=== PATIENT | male | born 2000 | race Hispanic/Latino ===

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

== ENCOUNTER 2022-02-14 09:16 | Observation (INO) | payer OTHER ==
[2022-02-14] MEDS ORDERED: Ketorolac Tromethamine 30 MG/ML VIAL ONE (09:54)
[2022-02-14 10:03] LABS: #Basophils 0.1 thou/uL (0.0-0.2); #Eosinphils 0.2 thou/uL (0.0-0.7); #Lymphocytes 2.6 thou/uL (1.20-3.40); #Monocytes 0.7 thou/uL (0.11-0.59); #Neutrophils 6.3 thou/uL (1.40-6.50); %Basophils 0.5 % (0.0-1.0); %Eosinophils 1.9 % (0.0-10.0); %Lymphocytes 26.3 % (28.0-48.0); %Monocytes 7.1 % (0.0-4.0); %Neutrophils 64.1 % (31.0-61.0); Hemoglobin 15.6 g/dL (14.0-18.0); Mean Corpuscular Hemoglobin 29.3 pg (25.0-35.0); Mean Corpuscular Volume 88.8 fL (78.0-98.0); Mean Platelet Volume 6.7 fL (7.4-10.4); Platelet Count 375 thou/uL (130-400); RBC Distribution Width 12.5 % (11.5-14.5); Red Blood Cell (RBC) Count 5.31 mill/uL (4.00-5.20); White Blood Cell (WBC) Count 9.8 thou/uL (4.8-10.8)
[2022-02-14 10:19] LABS: ALT (SGPT) 24 U/L (8-55); AST (SGOT) 19 U/L (5-34); Albumin 4.3 g/dL (3.5-5.0); Alkaline Phosphatase 112 U/L (50-130); Anion Gap 12 mmol/L (10-20); BUN (Urea Nitrogen) 10 mg/dL (8.9-20.6); Bilirubin, Total 0.5 mg/dL (0.2-1.2); Calc. Creatinine Clearance 0 mL/min (70-130); Calcium 9.5 mg/dL (7.8-10.44); Carbon Dioxide 25 mmol/L (22-29); Chloride 104 mmol/L (98-107); Globulin 3.4 g/dL (2.4-3.5); Glucose 108 mg/dL (70-105); Potassium 4.2 mmol/L (3.5-5.1); Protein, Total 7.7 g/dL (6.0-8.3); Sodium 137 mmol/L (136-145)
[2022-02-14] MEDS ORDERED: Clindamycin/D5W 900 mg/50 ml Premix Bag ONE (12:49)
[2022-02-14] MEDS ORDERED: Iopamidol-370 76% 500 ML 1 ML ONE (13:34)
[2022-02-14] MEDS: Ibuprofen 800 MG TAB PO PRN (15:47)
[2022-02-14 16:35] VITALS: BMI 37.1
[2022-02-14] MEDS: Acetaminophen 325 MG TAB PO PRN (18:08)
[2022-02-14] MEDS: Clindamycin/D5W 600 MG in Premix Bag 1 BAG IVPB SCH (20:06)
[2022-02-14 23:26] LABS: SARS-CoV-2 NAA Rapid Test Not Detected (NotDetected)
[2022-02-15] MEDS: Clindamycin/D5W 600 MG in Premix Bag 1 BAG IVPB SCH ×2 (04:49→12:04)
[2022-02-15] MEDS: Ibuprofen 800 MG TAB PO PRN ×3 (04:54→20:45)
[2022-02-15 07:19] LABS: #Eosinphils 0.2 thou/uL (0.0-0.7); #Lymphocytes 2.6 thou/uL (1.20-3.40); #Monocytes 0.7 thou/uL (0.11-0.59); #Neutrophils 5.7 thou/uL (1.40-6.50); %Basophils 0.5 % (0.0-1.0); %Eosinophils 2.7 % (0.0-10.0); %Monocytes 7.7 % (0.0-4.0); %Neutrophils 61.2 % (31.0-61.0); Hemoglobin 14.2 g/dL (14.0-18.0); Mean Corpuscular Hemoglobin 29.8 pg (25.0-35.0); Mean Corpuscular Volume 90.3 fL (78.0-98.0); Platelet Count 326 thou/uL (130-400); RBC Distribution Width 12.5 % (11.5-14.5); Red Blood Cell (RBC) Count 4.78 mill/uL (4.00-5.20); White Blood Cell (WBC) Count 9.2 thou/uL (4.8-10.8)
[2022-02-15 07:36] LABS: ALT (SGPT) 19 U/L (8-55); AST (SGOT) 15 U/L (5-34); Albumin 3.9 g/dL (3.5-5.0); Alkaline Phosphatase 111 U/L (50-130); Anion Gap 13 mmol/L (10-20); BUN (Urea Nitrogen) 11 mg/dL (8.9-20.6); Bilirubin, Total 0.3 mg/dL (0.2-1.2); Calc. Creatinine Clearance 246 mL/min (70-130); Calcium 9.3 mg/dL (7.8-10.44); Carbon Dioxide 23 mmol/L (22-29); Chloride 107 mmol/L (98-107); Globulin 3.1 g/dL (2.4-3.5); Glucose 109 mg/dL (70-105); Sodium 139 mmol/L (136-145)
[2022-02-15] MEDS: Acetaminophen 325 MG TAB PO PRN (09:31)
[2022-02-15] MEDS ORDERED: Saccharomyces boulardii 250 MG CAP PO SCH (13:15)
[2022-02-15] MEDS: Clindamycin 150 MG CAP PO SCH (20:13)
[2022-02-16] MEDS: Ibuprofen 800 MG TAB PO PRN (06:00)
[2022-02-16] MEDS: Clindamycin 150 MG CAP PO SCH (06:00)
[2022-02-16 08:22] VITALS: BP 112/78; TEMP 98.6
[2022-02-16] MEDS ORDERED: Saccharomyces boulardii 250 MG CAP PO SCH (09:00)
== END 2022-02-16 11:30 | disposition home or self-care (01) ==
LOC: ERS 09:16 → INTOOBSV 12:37 → SURG A 12:37
PROVIDERS: ADMIT Family Medicine; ATTEND Family Medicine
DX: L03.211 Cellulitis of face (principal); Z87.891 Personal history of nicotine dependence; Z20.822 Contact with and (suspected) exposure to COVID-19
CPT/HCPCS: 36415; 70487; 80053; 83605; 85025; 87040; 94760; 96374; 96375; G0378; J1885; J3490; Q9967; U0002

== ENCOUNTER → 2024-09-19 | Emergency (ER) | payer SELFPAY ==
[~2024-09-19] MED LIST changes: +Ibuprofen 800 MG TAB ONE; -Iopamidol-370 76% 500 ML 1 ML ONE
== END ==
LOC: ERS 19:41
DX: B34.9 Viral infection, unspecified (principal); I10 Essential (primary) hypertension
CPT/HCPCS: 87428; 99283